=== PATIENT | male | born 2000 | race Caucasian/White ===

== ENCOUNTER 2023-09-24 14:58 | Emergency (ER) | payer SELFPAY ==
[~2023-09-24] VITALS: Ht 175.3 cm; Wt 72.6 kg
[2023-09-24 15:25] VITALS: BP 132/68; PULSE 83; RESP 18; TEMP 98; O2SAT 98
[2023-09-24 15:42] VITALS: BP 132/68; PULSE 83; RESP 18; TEMP 98; O2SAT 98
[2023-09-24 16:15] LABS: FLU A ANTIGEN negative (NEGATIVE); FLU B ANTIGEN negative (NEGATIVE)
== END 2023-09-24 15:35 | disposition home or self-care (01) ==
LOC: MED 14:58
DX: J06.9 Acute upper respiratory infection, unspecified (principal); Z20.822 Contact with and (suspected) exposure to COVID-19
CPT/HCPCS: 99283

== ENCOUNTER 2024-03-11 20:32 | Emergency (ER) | payer BC ==
[~2024-03-11] VITALS: Ht 175.3 cm; Wt 72.6 kg
[2024-03-11 20:52] VITALS: BP 122/63; PULSE 73; RESP 18; TEMP 98.2; O2SAT 98
[2024-03-11] MEDS ORDERED: FLUORESCEIN OPTH STRIP 1 MG OP ONE (21:20)
[2024-03-11] MEDS ORDERED: TETRAHYDROZOLINE 0.05% OP 15 ML BTL OP SCH (21:20)
[2024-03-11] MEDS ORDERED: POLY10DR5 OP (22:28)
== END 2024-03-11 22:35 | disposition home or self-care (01) ==
LOC: MED 20:32
DX: H10.9 Unspecified conjunctivitis (principal); Z79.899 Other long term (current) drug therapy
CPT/HCPCS: 99283

== ENCOUNTER 2024-04-05 18:00 | Emergency (ER) | payer BC ==
[~2024-04-05] VITALS: Ht 175.3 cm; Wt 71.7 kg
[~2024-04-05 18:00] MED LIST: POLY10DR5 OP
[2024-04-05 18:03] VITALS: BP 133/70; PULSE 83; RESP 18; TEMP 97.2; O2SAT 99
[2024-04-05 19:30] VITALS: BP 112/67; PULSE 77; RESP 16; O2SAT 98
[2024-04-05] MEDS ORDERED: IBUP-1842 PO (19:37)
[2024-04-05] MEDS: KETOROLAC 30 MG/ML VIAL IM ONE (19:42)
== END 2024-04-05 19:49 | disposition home or self-care (01) ==
LOC: MED 18:00
DX: S30.22XA Contusion of scrotum and testes, initial encounter (principal); Z79.899 Other long term (current) drug therapy; X58.XXXA Exposure to other specified factors, initial encounter; Y93.89 Activity, other specified; Y92.89 Other specified places as the place of occurrence of the external cause; Y99.8 Other external cause status
CPT/HCPCS: 76870; 96372; 99285; J1885; Q0092

== ENCOUNTER 2024-04-15 17:58 | Emergency (ER) | payer BC ==
[~2024-04-15] VITALS: Ht 175.3 cm; Wt 72.6 kg
[~2024-04-15 17:58] MED LIST changes: +IBUP-1842 PO
[2024-04-15 18:07] VITALS: BP 131/74; PULSE 89; RESP 18; TEMP 98.3; O2SAT 98
[2024-04-15 18:53] LABS: APPEARANCE,URINE CLEAR (CLEAR); BILIRUBIN,URINE NEGATIVE (NEGATIVE); BLOOD, URINE NEGATIVE (NEGATIVE); COLOR,URINE YELLOW (YELLOW); LEUKOCYTE ESTERASE ,URINE NEGATIVE (NEGATIVE); NITRITE, URINE NEGATIVE (NEGATIVE); PH,URINE 6.5 (5.0-9.0); PROTEIN,URINE NEGATIVE (NEGATIVE); UGLUCOSE NEGATIVE (NEGATIVE); UROBILINOGEN,URINE 0.2 EU/dL (0.2 - 1)
[2024-04-15] MEDS ORDERED: DOXY-690 PO (20:43)
[2024-04-15] MEDS ORDERED: cefTRIAXone 500 MG VIAL ONE (20:48)
[2024-04-15] MEDS ORDERED: LIDOCAINE MPF 1% 5 ML ONE (20:51)
[2024-04-15 20:57] VITALS: BP 133/76; PULSE 82; RESP 20; TEMP 97.7; O2SAT 99
[2024-04-15] MEDS: cefTRIAXone 500 MG in LIDOCAINE MPF 1% 1 ML IM ONE (20:57)
== END 2024-04-15 20:57 | disposition home or self-care (01) ==
LOC: MED 17:58
DX: L73.9 Follicular disorder, unspecified (principal); Z79.899 Other long term (current) drug therapy
CPT/HCPCS: 81003; 96372; 99283; J0696; J2001; 36415